=== PATIENT | male | born 1950 | race Caucasian/White ===

== ENCOUNTER → 2017-02-10 | Day surgery (SDC) | payer MEDICARE, OTHER ==
[~2017-02-10] MED LIST: AUGMENTIN PO; CARAFATE PO; CIPRO PO; FISH OIL 1,0001 EAC1 PO; FLEXERIL PO; FLEXERIL10 M1 PO; FLEXERIL10 MG PO; HYDROCHLOROTHIA25 MG PO; HYDROCODON-ACE1 EAC9 PO; LORTAB 5/500 TA1 TA1 PO; MEDROL4 MG/DOSE- PO; MEVACOR; MEVACOR PO; MULTI-DAY1 TAB PO; MULTIVITAMINS1 EAC3 PO; PHENERGAN25 MG PO; PRILOSEC20 MG PO
--- NOTE | ~2017-02-10 | OR ---
Unit #: [id number] #: [id number] Patient: JHONNY OCONNELL [id number] [address] [address] [id number] O MR#: [id number] NAME: JHONNY OCONNELL ROOM: Date of Procedure: 02/10/2017 Admission Date: 02/10/2017 Surgeon: Adelfo Yang M.D. : 1950 Attending Physician: Adelfo Yang M.D. Primary Care Physician: [facility]. OPERATIVE REPORT PROCEDURE PERFORMED Colonoscopy with snare polypectomy. INDICATIONS FOR PROCEDURE A 66-year-old gentleman with heme-positive stool. MEDICATIONS Monitored anesthesia. POSTOPERATIVE FINDINGS 1. Transverse colon, 6 to 8 mm polyps, snared and sent for histopathology. 2. Rectum, 4 to 6 mm polyps, snared and sent for histopathology. 3. Prep was good. PLAN Repeat colonoscopy in 5 years. DESCRIPTION OF PROCEDURE The patient was explained of the procedure risks and benefits along with the risks and benefits of anesthesia. He was brought to the endoscopy room. Propofol anesthesia was given. Rectal exam was done, which was normal. Colonoscope was lubricated, passed up the rectum, advanced under direct vision all the way to the cecum. Cecum was identified by ileocecal valve and appendiceal orifice. Polyps seen has been described above. I retroflexed in the rectum, small hemorrhoids were seen. The scope was gently pulled out. He tolerated it well. No major complications were seen. Dictated by... Jorge Grey/saadia TD: 02/10/2017 18:17 JOB #: [id number] Unit #: [id number] #: [id number] Patient: JHONNY OCONNELL OPERATIVE REPORT Page 1 of 1 X Adelfo Yang MD X PROCEDURE OPERATIVE NOTE
== END | disposition home or self-care (01) ==
LOC: COPS 10:51
DX: K63.5 Polyp of colon (principal); K62.1 Rectal polyp; I10 Essential (primary) hypertension; E78.5 Hyperlipidemia, unspecified; J44.9 Chronic obstructive pulmonary disease, unspecified; M19.90 Unspecified osteoarthritis, unspecified site; Z79.899 Other long term (current) drug therapy
CPT/HCPCS: 88305